=== PATIENT | male | born 1960 | race Caucasian/White ===

== ENCOUNTER → 2017-11-28 | Outpatient (CLI) | payer OTHER | END | disposition home or self-care (01) | LOC: LAB 15:04 | DX: N20.0 Calculus of kidney (principal) | CPT/HCPCS: 82360 ==

== ENCOUNTER 2021-09-25 08:37 | Emergency (ER) | payer OTHER ==
[~2021-09-25] VITALS: Ht 182.9 cm; Wt 81.7 kg
[2021-09-25 09:08] LABS: BASOPHILS ABSOLUTE AUTO 0.03 K/mm3 (0.00-0.23); BASOPHILS PERCENT AUTO 1 % (0-2); EOSINOPHILS ABSOLUTE AUTO 0.08 K/mm3 (0.00-0.68); EOSINOPHILS PERCENT AUTO 2 % (0-6); Hematocrit 44.8 % (37.0-53.0); Hemoglobin 16.2 g/dL (13.5-17.5); IMMATURE GRAN ABSOLUTE AUTO 0.05 K/mm3 (0.00-0.10); IMMATURE GRAN PERCENT AUTO 1 % (0-1); LYMPHOCYTES ABSOLUTE AUTO 0.89 K/mm3 (0.84-5.20); LYMPHOCYTES PERCENT AUTO 16 % (21-46); MONOCYTES ABSOLUTE AUTO 0.58 K/mm3 (0.16-1.47); MONOCYTES PERCENT AUTO 11 % (4-13); Mean Corpuscular HGB 33.5 pg (26.0-34.0); Mean Corpuscular HGB Conc 36.2 g/dL (31.5-36.5); Mean Corpuscular Volume 93 fL (80-100); Mean Platelet Volume 11.9 fL (9.1-12.4); NEUTROPHILS ABSOLUTE AUTO 3.85 K/mm3 (1.96-9.15); NEUTROPHILS PERCENT AUTO 70 % (41-73); Platelet Count 143 K/mm3 (150-400); RDW Coefficient Variation 12.7 % (11.7-14.2); RDW Standard Deviation 43.6 fL (35.1-46.3); Red Blood Cell Count 4.83 M/mm3 (4.30-5.90); White Blood Cell Count 5.48 K/mm3 (4.00-11.30)
[2021-09-25 09:41] LABS: Alanine Aminotransfer (ALT/SGP 71 U/L (12-78); Albumin, Blood 3.4 g/dL (3.4-5.0); Alk Phos 110 U/L (50-136); Anion Gap 5 mmol/L (6-16); Aspartate Aminotrans (AST/SGOT 43 U/L (12-37); Bilirubin, Total 0.8 mg/dL (0.1-1.0); Blood Urea Nitrogen 18 mg/dL (8-24); Bun/Creatinine Ratio 20.3 (12.0-20.0); CO2, Blood 24 mmol/L (21-32); Calcium, Blood 8.6 mg/dL (8.5-10.1); Chloride, Blood 113 mmol/L (98-108); Creatinine, Blood 0.89 mg/dL (0.60-1.20); Globulin, Blood 3.5 g/dL (2.2-4.0); Glomerular Filtration Rate >60 (60-); Glucose, Blood 119 mg/dL (70-99); Potassium, Blood 4.1 mmol/L (3.5-5.5); Sodium, Blood 142 mmol/L (136-145); Total Protein, Blood 6.9 g/dL (6.4-8.2); Troponin I <0.015 ng/mL (0.000-0.040)
[2021-09-25 09:46] LABS: Ethanol (Alcohol), Blood, Med <3 mg/dL
[2021-09-25] MEDS ORDERED: SILDENAFIL CIT100 MG PO (09:46)
[2021-09-25] MEDS ORDERED: TERA5 PO (09:46)
[2021-09-25 09:52] LABS: International Normalized Ratio 1.04; Prothrombin Time Results 10.9 Sec (9.7-11.5)
== END 2021-09-25 11:24 | disposition home or self-care (01) ==
LOC: ER 08:37
PROVIDERS: Emergency Medicine
DX: I95.2 Hypotension due to drugs (principal); T50.995A Adverse effect of other drugs, medicaments and biological substances, initial encounter; I10 Essential (primary) hypertension; Z88.5 Allergy status to narcotic agent
CPT/HCPCS: 70450; 80053; 83880; 84484; 85025; 85610; 93005; 93010; 99284-25; G0480

== ENCOUNTER → 2022-02-03 | Outpatient (CLI) | payer OTHER ==
[~2022-02-03] MED LIST: SILDENAFIL CIT100 MG PO; TERA5 PO
[2022-02-03 12:05] LABS: Protein, Urine Quantitative 6.6 mg/dL (0.0-11.9); Urine Potassium 37 mmol/L (12.0-75.0)
[2022-02-03 13:02] LABS: Microalbumin, Urine Quant. <5.000 mg/L (0.000-20.000)
== END ==
LOC: LAB SHORT 06:00 → LAB FUT 02-02 06:50
PROVIDERS: Internal Medicine Nephrology
DX: N18.2 Chronic kidney disease, stage 2 (mild) (principal); D63.1 Anemia in chronic kidney disease; N25.81 Secondary hyperparathyroidism of renal origin; E55.9 Vitamin D deficiency, unspecified; E78.00 Pure hypercholesterolemia, unspecified; R76.9 Abnormal immunological finding in serum, unspecified; R94.5 Abnormal results of liver function studies; R94.6 Abnormal results of thyroid function studies
CPT/HCPCS: 81050; 82043; 82570; 84133; 84156

== ENCOUNTER 2022-09-18 11:56 | Emergency (ER) | payer OTHER ==
[~2022-09-18] VITALS: Ht 182.9 cm; Wt 90.7 kg
[2022-09-18 13:59] LABS: BASOPHILS ABSOLUTE AUTO 0.07 K/mm3 (0.00-0.23); BASOPHILS PERCENT AUTO 1 % (0-2); EOSINOPHILS ABSOLUTE AUTO 0.08 K/mm3 (0.00-0.68); EOSINOPHILS PERCENT AUTO 1 % (0-6); Hematocrit 46.1 % (37.0-53.0); Hemoglobin 16.7 g/dL (13.5-17.5); IMMATURE GRAN ABSOLUTE AUTO 0.08 K/mm3 (0.00-0.10); IMMATURE GRAN PERCENT AUTO 1 % (0-1); LYMPHOCYTES ABSOLUTE AUTO 1.45 K/mm3 (0.84-5.20); LYMPHOCYTES PERCENT AUTO 18 % (21-46); MONOCYTES ABSOLUTE AUTO 0.82 K/mm3 (0.16-1.47); MONOCYTES PERCENT AUTO 10 % (4-13); Mean Corpuscular HGB 33.3 pg (26.0-34.0); Mean Corpuscular HGB Conc 36.2 g/dL (31.5-36.5); Mean Corpuscular Volume 92 fL (80-100); Mean Platelet Volume 11.2 fL (9.1-12.4); NEUTROPHILS ABSOLUTE AUTO 5.58 K/mm3 (1.96-9.15); NEUTROPHILS PERCENT AUTO 69 % (41-73); Platelet Count 195 K/mm3 (150-400); RDW Coefficient Variation 12.1 % (11.7-14.2); RDW Standard Deviation 40.6 fL (35.1-46.3); Red Blood Cell Count 5.01 M/mm3 (4.30-5.90); White Blood Cell Count 8.08 K/mm3 (4.00-11.30)
[2022-09-18 14:14] LABS: Albumin/Globulin Ratio 1.2 (0.8-1.8); Bilirubin, Total 0.8 mg/dL (0.1-1.0); Bun/Creatinine Ratio 12.4 (12.0-20.0); Calcium, Blood 8.9 mg/dL (8.5-10.1); Creatinine, Blood 0.97 mg/dL (0.60-1.20); Globulin, Blood 3.3 g/dL (2.2-4.0); Potassium, Blood 4.7 mmol/L (3.5-5.5); Total Protein, Blood 7.3 g/dL (6.4-8.2)
[2022-09-18 15:11] LABS: Magnesium, Blood 2.4 mg/dL (1.6-2.4)
[2022-09-18 15:13] LABS: Thyroid Stimulating Hormone 1.33 uIU/mL (0.360-4.800)
[2022-09-18 15:46] LABS: Influenza A, PCR NEGATIVE (NEGATIVE); Influenza B, PCR NEGATIVE (NEGATIVE); Resp Syncytial Virus, PCR NEGATIVE (NEGATIVE); SARS-Cov-2 (COVID-19) PCR, MMC NEGATIVE (NEGATIVE)
== END 2022-09-18 17:10 | disposition home or self-care (01) ==
LOC: ER 11:56
PROVIDERS: Physician Assistant; Student in an Organized Health Care Education/Training Program
DX: G45.9 Transient cerebral ischemic attack, unspecified (principal); I10 Essential (primary) hypertension; Z88.5 Allergy status to narcotic agent; Z79.899 Other long term (current) drug therapy; Z20.822 Contact with and (suspected) exposure to COVID-19
CPT/HCPCS: 0241U; 36415; 70450; 70496; 70498; 80053; 82947; 83735; 84443; 85025; 93005; 93010; Q9967

== ENCOUNTER 2022-10-13 09:03 | Emergency (ER) | payer OTHER ==
[~2022-10-13] VITALS: Ht 182.9 cm; Wt 90.7 kg
[2022-10-13 09:30] LABS: BASOPHILS ABSOLUTE AUTO 0.04 K/mm3 (0.00-0.23); BASOPHILS PERCENT AUTO 1 % (0-2); EOSINOPHILS ABSOLUTE AUTO 0.05 K/mm3 (0.00-0.68); EOSINOPHILS PERCENT AUTO 1 % (0-6); Hematocrit 45.3 % (37.0-53.0); Hemoglobin 16.8 g/dL (13.5-17.5); IMMATURE GRAN ABSOLUTE AUTO 0.07 K/mm3 (0.00-0.10); IMMATURE GRAN PERCENT AUTO 1 % (0-1); LYMPHOCYTES ABSOLUTE AUTO 0.94 K/mm3 (0.84-5.20); LYMPHOCYTES PERCENT AUTO 14 % (21-46); MONOCYTES ABSOLUTE AUTO 0.76 K/mm3 (0.16-1.47); MONOCYTES PERCENT AUTO 11 % (4-13); Mean Corpuscular HGB 33.7 pg (26.0-34.0); Mean Corpuscular HGB Conc 37.1 g/dL (31.5-36.5); Mean Corpuscular Volume 91 fL (80-100); Mean Platelet Volume 11.3 fL (9.1-12.4); NEUTROPHILS ABSOLUTE AUTO 4.81 K/mm3 (1.96-9.15); NEUTROPHILS PERCENT AUTO 72 % (41-73); Platelet Count 156 K/mm3 (150-400); Red Blood Cell Count 4.98 M/mm3 (4.30-5.90); White Blood Cell Count 6.67 K/mm3 (4.00-11.30)
[2022-10-13 09:42] LABS: Albumin, Blood 3.8 g/dL (3.4-5.0); Albumin/Globulin Ratio 1.1 (0.8-1.8); Bun/Creatinine Ratio 21.7 (12.0-20.0); Calcium, Blood 8.6 mg/dL (8.5-10.1); Creatinine, Blood 0.79 mg/dL (0.60-1.20); Globulin, Blood 3.5 g/dL (2.2-4.0); Potassium, Blood 4.1 mmol/L (3.5-5.5); Total Protein, Blood 7.3 g/dL (6.4-8.2)
[2022-10-13] MEDS ORDERED: Aspir 8181 MG PO (11:44)
== END 2022-10-13 12:02 | disposition home or self-care (01) ==
LOC: ER 09:03
PROVIDERS: Student in an Organized Health Care Education/Training Program
DX: R20.0 Anesthesia of skin (principal); G47.33 Obstructive sleep apnea (adult) (pediatric); I10 Essential (primary) hypertension; Z91.198 Patient's noncompliance with other medical treatment and regimen for other reason; Z88.5 Allergy status to narcotic agent
CPT/HCPCS: 70450; 70498; 80053; 83735; 85025; 93005; 93010; A9270; Q9967

== ENCOUNTER 2023-09-24 16:29 | Observation (INO) | payer OTHER ==
[~2023-09-24] VITALS: Ht 182.9 cm; Wt 86.5 kg
[~2023-09-24 16:29] MED LIST changes: +Aspir 8181 MG PO
[2023-09-24] MEDS ORDERED: Prinivil10 MG PO (16:36)
[2023-09-24 17:08] LABS: BASOPHILS ABSOLUTE AUTO 0.07 K/mm3 (0.00-0.23); BASOPHILS PERCENT AUTO 1 % (0-2); EOSINOPHILS ABSOLUTE AUTO 0.16 K/mm3 (0.00-0.68); EOSINOPHILS PERCENT AUTO 2 % (0-6); Hemoglobin 14.4 g/dL (13.5-17.5); IMMATURE GRAN ABSOLUTE AUTO 0.03 K/mm3 (0.00-0.10); IMMATURE GRAN PERCENT AUTO 0 % (0-1); LYMPHOCYTES ABSOLUTE AUTO 1.44 K/mm3 (0.84-5.20); LYMPHOCYTES PERCENT AUTO 21 % (21-46); MONOCYTES ABSOLUTE AUTO 0.76 K/mm3 (0.16-1.47); MONOCYTES PERCENT AUTO 11 % (4-13); Mean Corpuscular HGB Conc 34.3 g/dL (31.5-36.5); Mean Corpuscular Volume 88 fL (80-100); Mean Platelet Volume 11.8 fL (9.1-12.4); NEUTROPHILS PERCENT AUTO 65 % (41-73); Platelet Count 182 K/mm3 (150-400); RDW Coefficient Variation 13.2 % (11.7-14.2); RDW Standard Deviation 41.9 fL (35.1-46.3); White Blood Cell Count 6.96 K/mm3 (4.00-11.30)
[2023-09-24 17:16] LABS: Albumin, Blood 3.5 g/dL (3.4-5.0); Bilirubin, Total 0.5 mg/dL (0.1-1.0); Bun/Creatinine Ratio 16.9 (12.0-20.0); Calcium, Blood 8.3 mg/dL (8.5-10.1); Creatinine, Blood 0.95 mg/dL (0.60-1.20); Globulin, Blood 3.6 g/dL (2.2-4.0); Potassium, Blood 4.1 mmol/L (3.5-5.5); Total Protein, Blood 7.1 g/dL (6.4-8.2)
[2023-09-24 23:36] VITALS: BP 144/70
--- NOTE | 2023-09-25 00:56 | NUR ---
PATIENT IS A NEW ADMIT FROM THE ED. ARRIVED VIA GURNEY AND SELF TRANSFER TO BED. AXOX 4 AND INDEPENDENT. NO NEURO DEFICITS NOTED OR REPORTED BY PATIENT AND SPOUSE AT THIS TIME. ON ROOM AIR. PATIENT ON CPAP AFTER ASSESSMENT COMPLETED. ORIENTED TO ROOM AND CALL LIGHT SYSTEM. SPOUSE LEFT FOR EVENING. OTTO.
--- NOTE | 2023-09-25 04:07 | NUR ---
SHIFT SUMMARY PATIENT HAD NO ACUTE CHANGES. NO NEURO DEFICITS OBSERVED OR REPORTED BY PATIENT. AXOX 4 AND SBA TO BR. DENIES CHEST PAIN, SOB, AND N/V. ON HOME CPAP REVIEWED BY RT. VSS/AFEBRILE. PIV REMAINS INTACT. SLEPT MOST OF SHIFT. COOPERATIVE WITH CARE. CALL LIGHT IN REACH. BED IN LOWEST POSITION. WILL CONTINUE TO MONITOR UNTIL DAY SHIFT NURSE ASSUMES CARE.
[2023-09-25 04:44] VITALS: BP 135/67
[2023-09-25 07:33] VITALS: BP 167/82
--- NOTE | 2023-09-25 07:51 | NUR ---
ASSUMED CARE OF PT- BEDSIDE REPORT COMPLETED WITH NIGHT RN. PT ALERT AND ORIENTED REMOVED HIS HOME C-PAP TO PARTICIPATE IN BEDSIDE REPORT AND REPLACED IT ON HIS OWN. PER REPORT PT INDEPENDENT TO THE BATHROOM. BP ON MORNING ASSESSMENT WAS 167/89. CALLED DR SALMERON PT LISINOPRIL WAS ORDERED FOR LAST NIGHT AND SKIP THIS MORNING. PT DECLINEDTO TAKE IT LAST NIGHT HE HAD ALREADY TAKEN YESTERDAYS DOSE PRIOR TO COMING TO THE ER. SPOKE WITH MD AND RECIEVED ORDER FOR LISINOPRIL THIS MORNING, ORDER PLACED IN ORDER MANAGEMENT.
[2023-09-25] MEDS ORDERED: MELA3 PO (15:59)
[2023-09-25] MEDS ORDERED: CLOP75 PO (15:59)
--- NOTE | 2023-09-25 16:46 | NUR ---
DISCHARGE NOTE: COMPLETED DISCHARGE AND WENT OVER IT WITH PATIENT AND HIS AND REMOVED HIS IV. CALLED DR. RAYMOND ABOUT IMAGING RESULTS. HE STATED OKAY TO NOTIFY THE PATIENT THAT RESULTS OF STUDIES CAN BE DISCUSSED WITH PCP AND HOPES OF BEING ABLE TO GET HIM SCHEDULED A FOLLOW UP TOMORROW 09/26. PATIENT AND ACKNOWLEDGED UNDERSTANDING. HIS BELONGINGS WERE ALREADY COLLECTED AND PATIENT WAS WHEELED OUT VIA WHEELCHAIR BY [facility] REFINERY OUT OF THE HOSPITAL TO HIM AND HIS 'S VEHICLE. NO SIGNS OR SYMPTOMS OF DISTRESS.
== END 2023-09-25 16:13 | disposition home or self-care (01) ==
LOC: ER 16:29 → MEDS 16:30 → ERHOLD 16:30 → MEDS 23:27
PROVIDERS: Emergency Medicine; ADMIT Internal Medicine
DX: G45.9 Transient cerebral ischemic attack, unspecified (principal); I10 Essential (primary) hypertension; G47.33 Obstructive sleep apnea (adult) (pediatric); R01.1 Cardiac murmur, unspecified; I70.0 Atherosclerosis of aorta; I71.9 Aortic aneurysm of unspecified site, without rupture; Z79.82 Long term (current) use of aspirin; Z88.5 Allergy status to narcotic agent; Z88.8 Allergy status to other drugs, medicaments and biological substances; Z79.899 Other long term (current) drug therapy
CPT/HCPCS: 70450; 80053; 85025; 93005; 93010; 93306; 93880; 94762; 96372; 99285-25; A9270; G0378; J1650

== ENCOUNTER → 2024-05-11 | Outpatient (CLI) | payer OTHER ==
[~2024-05-11] MED LIST changes: +CLOP75 PO; +MELA3 PO; +Prinivil10 MG PO
[2024-05-12 12:59] LABS: Stool Occult Bld Immuno 1 Negative (NEGATIVE)
== END | disposition home or self-care (01) ==
LOC: LAB SHORT 17:13 → LAB 17:13
PROVIDERS: Family Medicine
DX: Z12.11 Encounter for screening for malignant neoplasm of colon (principal)
CPT/HCPCS: G0328

== ENCOUNTER 2025-01-03 10:33 | Inpatient (IN) | payer MEDICARE ==
[~2025-01-03] VITALS: Ht 182.9 cm; Wt 82.6 kg
[2025-01-03 11:39] LABS: BASOPHILS ABSOLUTE AUTO 0.05 K/mm3 (0.00-0.23); BASOPHILS PERCENT AUTO 1 % (0-2); EOSINOPHILS ABSOLUTE AUTO 0.03 K/mm3 (0.00-0.68); EOSINOPHILS PERCENT AUTO 1 % (0-6); Hematocrit 45.8 % (37.0-53.0); IMMATURE GRAN ABSOLUTE AUTO 0.04 K/mm3 (0.00-0.10); IMMATURE GRAN PERCENT AUTO 1 % (0-1); LYMPHOCYTES ABSOLUTE AUTO 1.02 K/mm3 (0.84-5.20); LYMPHOCYTES PERCENT AUTO 17 % (21-46); MONOCYTES PERCENT AUTO 15 % (4-13); Mean Corpuscular HGB 31.9 pg (26.0-34.0); Mean Corpuscular HGB Conc 34.9 g/dL (31.5-36.5); Mean Corpuscular Volume 91 fL (80-100); Mean Platelet Volume 11.9 fL (9.1-12.4); NEUTROPHILS ABSOLUTE AUTO 4.11 K/mm3 (1.96-9.15); NEUTROPHILS PERCENT AUTO 67 % (41-73); Platelet Count 163 K/mm3 (150-400); RDW Coefficient Variation 13.6 % (11.7-14.2); RDW Standard Deviation 45.1 fL (35.1-46.3); Red Blood Cell Count 5.01 M/mm3 (4.30-5.90); White Blood Cell Count 6.15 K/mm3 (4.00-11.30)
[2025-01-03 11:50] LABS: International Normalized Ratio 1.04; Prothrombin Time Results 11.1 Sec (9.7-11.5)
[2025-01-03 11:59] LABS: Albumin/Globulin Ratio 1.1 (0.8-1.8); Bilirubin, Total 0.9 mg/dL (0.1-1.0); Bun/Creatinine Ratio 11.9 (12.0-20.0); Calcium, Blood 9.2 mg/dL (8.5-10.1); Creatinine, Blood 0.93 mg/dL (0.60-1.20); Globulin, Blood 3.6 g/dL (2.2-4.0); Potassium, Blood 4.3 mmol/L (3.5-5.5); Total Protein, Blood 7.6 g/dL (6.4-8.2)
[2025-01-03] MEDS ORDERED: FLU VACC TS2024-25(6MOS UP)/PF 45 MCG/0.5 ML SYRINGE IM SCH (13:45)
[2025-01-03] MEDS ORDERED: Clopidogrel Bisulfate 300 MG Cap PO ONE (15:15)
[2025-01-03 18:02] VITALS: BP 182/82
[2025-01-03] MEDS ORDERED: Flomax0.4 MG PO (18:11)
[2025-01-03] MEDS ORDERED: MELA3 PO (18:11)
[2025-01-03] MEDS ORDERED: FEROSUL325 M1 PO (18:12)
[2025-01-03] MEDS ORDERED: HYDR10 PO (18:37)
--- NOTE | 2025-01-03 19:35 | NUR ---
ADMIT NOTE REPORT TAKEN FROM ER NURSE MICHAEL. BROUGHT UP AROUND 1730. A/OX3-4. ROOM AIR. STAND-BY ASSIST, LIMP TO RLE FROM CRUSH INJURY. NO NOTED DEFICITS FROM TIA. REPORT GIVEN TO NIKITA [employer] SCIENTIST VALERIA. MED REC COMPLETED. HISTORY OF SUNDOWNING AND AGITATION/AGGRESSION WITH BETA BLOCKERS AND ANTIPSYCHOTICS. COPIES OF LIST OF MEDS TRIED ON CHART. SKIN INTACT. CPAP TO BE BROUGHT IN FROM HOME BY . REQUESTING MELATONIN TONIGHT. JEREMIAH CLAY RN TO CALL HOSPITALIST ABOUT ELEVATED BLOOD PRESSURE IN THE 180'S WHICH HAS BEEN DOCUMENTED IN ER PREVIOUSLY. NO MEDS GIVEN IN ER.
--- NOTE | 2025-01-03 19:48 | NUR ---
HOSPITALIST CONTACT PT REQUESTING HOME MED/MELATONIN AND HYDRALAZINE FOR BP. SPOKE TO JUANI--NEW ORDER FOR 3MG MELATONIN AT BEDTIME. 10MG PO HYDRALAZINE Q6PRN FOR SYSTOLIC BP GREATER THAN 180.
[2025-01-03] MEDS ORDERED: HydrALAZINE HCl 10 MG Tab PO PRN (19:50)
[2025-01-03] MEDS ORDERED: Melatonin 3 MG Tab PO SCH (21:00)
[2025-01-04] VITALS (7 sets, daily range): BP systolic 148–193; BP diastolic 61–91
[2025-01-04 06:39] LABS: LDL/HDL RATIO 0.7; Very Low Density Lipoprot Chol 13 mg/dL (6-32)
[2025-01-04 06:40] LABS: CHOL/HDL RATIO 1.9; Cholesterol 123 mg/dL (50-200); HDL Cholesterol 65 mg/dL (>39); Low Density Lipoprotein Chol 45 mg/dL (0-110); Triglycerides 67 mg/dL (30-160)
[2025-01-04] MEDS ORDERED: Aspirin 81 MG Chew PO SCH (09:00)
[2025-01-04] MEDS ORDERED: Clopidogrel Bisulfate 75 MG Tab PO SCH (09:00)
[2025-01-04] MEDS ORDERED: Tamsulosin HCl 0.4 MG Cap PO SCH (09:00)
[2025-01-04] MEDS ORDERED: Enoxaparin 40 MG/0.4 ML SYR SC SCH (09:00)
[2025-01-04] MEDS ORDERED: HydrALAZINE HCl 10 MG Tab PO SCH (14:00)
--- NOTE | 2025-01-04 23:14 | NUR ---
ASSESSED PT S IV SITE FOR POSSIBLE LEAKING. SITE SHOWN DARK DRIED BLOOD. FLUSHED WITH 10ML NS NO SIGN OF LEAKING, INFILTRATION, OR SWELLING. NO PAIN, OR BURNING EXPRESSED BY PT. WILL CONTINUE TO MONITOR.
[2025-01-05 00:14] VITALS: BP 167/70
--- NOTE | 2025-01-05 06:22 | NUR ---
SHIFT SUMMARY PT ALERT AND ORIENTED TIMES 4. PT ABLE TO MAKE NEEDS KNOWN. PT ABLE TO AMBULATE TO AND FROM TOILET WITH STAND BY ASSIST. PT S AT BED-SIDE. PT USING C-PAP MACHINE AT NIGHT WHILE SLEEPING. ASSESSED PT S IV SITE FOR POSSIBLE LEAKING. SITE SHOWN DARK DRIED BLOOD. WHEN FLUSHED, THERE WAS NO SIGN OF LEAKING, INFILTRATION, OR SWELLING. NO PAIN, OR BURNING EXPRESSED BY PT. PT IS RECEPTIVE TO CARE, GETS ANXIOUS AND SLIGHTLY AGITATED WITH LOTS OF PEOPLE IN ROOM. PT HAS EPISODES OF SUNDOWNERS. BED IN LOW POSITION, CALL LIGHT WITHIN REACH, RAILS TIMES 2.
[2025-01-05 07:06] VITALS: BP 155/81
[2025-01-05 07:17] LABS: Bun/Creatinine Ratio 15.2 (12.0-20.0); Calcium, Blood 8.6 mg/dL (8.5-10.1); Creatinine, Blood 1.05 mg/dL (0.60-1.20); Potassium, Blood 4.5 mmol/L (3.5-5.5)
[2025-01-05] MEDS ORDERED: ASPI81CH PO (10:48)
[2025-01-05] MEDS ORDERED: PLAVIX75 MG PO (10:49)
[2025-01-05] MEDS ORDERED: HydrALAZINE HCl 10 MG Tab PO SCH (12:00)
--- NOTE | 2025-01-05 14:51 | NUR ---
PT DISCHARGED WITH DC INSTRUCTIONS, WHEELCHAIR ESCORT OUT TO PRIVATE CAR, NIKO WILL DRIVE PT HOME.
== END 2025-01-05 11:17 | disposition home or self-care (01) | DRG 65 ==
LOC: ER 10:33 → ERHOLD 10:34 → MEDS 10:34
PROVIDERS: Emergency Medicine; ADMIT Internal Medicine
DX: I63.512 Cerebral infarction due to unspecified occlusion or stenosis of left middle cerebral artery (principal); F03.94 Unspecified dementia, unspecified severity, with anxiety; N40.0 Benign prostatic hyperplasia without lower urinary tract symptoms; I10 Essential (primary) hypertension; G47.33 Obstructive sleep apnea (adult) (pediatric); R47.81 Slurred speech; I72.0 Aneurysm of carotid artery; Z88.5 Allergy status to narcotic agent; Z88.8 Allergy status to other drugs, medicaments and biological substances; Z98.890 Other specified postprocedural states; R29.702 NIHSS score 2
CPT/HCPCS: 36415; 70450; 70496; 70498; 70551; 71045; 80048; 80053; 80061; 83036; 84484; 85025; 85610; 85730; 93005; 93010; 96372; 99285-25; A9270; G0378; J1650; Q9967

== ENCOUNTER 2025-07-16 15:11 | Emergency (ER) | payer MEDICARE ==
[~2025-07-16] VITALS: Ht 188 cm; Wt 81.7 kg
[~2025-07-16 15:11] MED LIST changes: +ACET325 PO; +ASPI81CH PO; +DOCUZEN 8.6-501 EACH PO; +FEROSUL325 M1 PO; +Flomax0.4 MG PO; +HYDR10 PO; +MIRALAX17 GM PO; +OLAN5 PO; +PLAVIX75 MG PO; +ROSUVASTATIN CAL5 MG PO
[2025-07-16 15:19] VITALS: BP 167/92
[2025-07-21] MEDS ORDERED: LIDO700A20 TOP ×3 (11:48→13:44)
== END 2025-07-16 18:27 | disposition home or self-care (01) ==
LOC: ER 15:11
DX: S42.031A Displaced fracture of lateral end of right clavicle, initial encounter for closed fracture (principal); G47.30 Sleep apnea, unspecified; I10 Essential (primary) hypertension; W18.30XA Fall on same level, unspecified, initial encounter; Z86.73 Personal history of transient ischemic attack (TIA), and cerebral infarction without residual deficits; Z79.82 Long term (current) use of aspirin; Z79.899 Other long term (current) drug therapy; Z88.5 Allergy status to narcotic agent; Z88.8 Allergy status to other drugs, medicaments and biological substances
CPT/HCPCS: 70450; 72125; 73030; 99284-25

== ENCOUNTER 2025-07-19 22:03 | Emergency (ER) | payer OTHER, MEDICARE ==
[~2025-07-19] VITALS: Ht 182.9 cm; Wt 44.5 kg
[2025-07-19 22:20] VITALS: BP 147/76
[2025-07-21] MEDS ORDERED: LIDO700A20 TOP ×3 (11:48→13:44)
== END 2025-07-20 00:11 | disposition home or self-care (01) ==
LOC: ER 22:03
DX: S09.90XA Unspecified injury of head, initial encounter (principal); I10 Essential (primary) hypertension; W01.0XXA Fall on same level from slipping, tripping and stumbling without subsequent striking against object, initial encounter; Z86.73 Personal history of transient ischemic attack (TIA), and cerebral infarction without residual deficits; Z79.82 Long term (current) use of aspirin; Z79.899 Other long term (current) drug therapy; Z88.1 Allergy status to other antibiotic agents; Z88.5 Allergy status to narcotic agent; Z88.8 Allergy status to other drugs, medicaments and biological substances
CPT/HCPCS: 99283; A9270

== ENCOUNTER 2025-07-21 09:57 | Emergency (ER) | payer MEDICARE ==
[~2025-07-21] VITALS: Ht 175.3 cm; Wt 67.6 kg
[2025-07-21 10:10] VITALS: BP 168/65
[2025-07-21] MEDS ORDERED: Lidocaine 4% 1 Patch TOP ONE (11:40)
[2025-07-21] MEDS ORDERED: LIDO700A20 TOP ×2 (11:48→13:44)
== END 2025-07-21 12:07 | disposition home or self-care (01) ==
LOC: ER 09:57
DX: S42.031A Displaced fracture of lateral end of right clavicle, initial encounter for closed fracture (principal); I10 Essential (primary) hypertension; G47.30 Sleep apnea, unspecified; Z86.73 Personal history of transient ischemic attack (TIA), and cerebral infarction without residual deficits; Z88.8 Allergy status to other drugs, medicaments and biological substances; Z88.5 Allergy status to narcotic agent; Z79.82 Long term (current) use of aspirin; Z79.899 Other long term (current) drug therapy; W18.30XA Fall on same level, unspecified, initial encounter
CPT/HCPCS: 73030; 99283-25; A9270

== ENCOUNTER 2025-08-11 19:47 | Emergency (ER) | payer OTHER, MEDICARE ==
[~2025-08-11] VITALS: Ht 177.8 cm; Wt 63.5 kg
[~2025-08-11 19:47] MED LIST changes: +LIDO700A20 TOP
[2025-08-11 19:56] VITALS: BP 127/72
== END 2025-08-11 21:43 | disposition home or self-care (01) ==
LOC: ER 19:47
DX: Z04.3 Encounter for examination and observation following other accident (principal); I10 Essential (primary) hypertension; G47.30 Sleep apnea, unspecified; F03.90 Unspecified dementia, unspecified severity, without behavioral disturbance, psychotic disturbance, mood disturbance, and anxiety; Z86.73 Personal history of transient ischemic attack (TIA), and cerebral infarction without residual deficits; Z88.5 Allergy status to narcotic agent; Z88.8 Allergy status to other drugs, medicaments and biological substances; Z79.82 Long term (current) use of aspirin; Z79.899 Other long term (current) drug therapy
CPT/HCPCS: 70450; 72125; 99284-25

== ENCOUNTER 2025-08-29 16:21 | Emergency (ER) | payer MEDICARE ==
[~2025-08-29] VITALS: Ht 175.3 cm; Wt 68.0 kg
[2025-08-29 18:38] VITALS: BP 107/52
== END 2025-08-29 18:45 | disposition home or self-care (01) ==
LOC: ER 16:21
DX: S09.90XA Unspecified injury of head, initial encounter (principal); I10 Essential (primary) hypertension; Z86.73 Personal history of transient ischemic attack (TIA), and cerebral infarction without residual deficits; W18.30XA Fall on same level, unspecified, initial encounter
CPT/HCPCS: 70450; 99284-25

== ENCOUNTER 2025-09-04 19:16 | Emergency (ER) | payer MEDICARE ==
[~2025-09-04] VITALS: Ht 182.9 cm; Wt 86.2 kg
[2025-09-04 19:18] VITALS: BP 138/74
[2025-09-04 19:49] LABS: BASOPHILS ABSOLUTE AUTO 0.05 K/mm3 (0.00-0.23); BASOPHILS PERCENT AUTO 1 % (0-2); EOSINOPHILS ABSOLUTE AUTO 0.12 K/mm3 (0.00-0.68); EOSINOPHILS PERCENT AUTO 2 % (0-6); Hematocrit 37.9 % (37.0-53.0); Hemoglobin 13.5 g/dL (13.5-17.5); IMMATURE GRAN ABSOLUTE AUTO 0.04 K/mm3 (0.00-0.10); IMMATURE GRAN PERCENT AUTO 1 % (0-1); LYMPHOCYTES ABSOLUTE AUTO 0.93 K/mm3 (0.84-5.20); LYMPHOCYTES PERCENT AUTO 13 % (21-46); MONOCYTES ABSOLUTE AUTO 0.71 K/mm3 (0.16-1.47); MONOCYTES PERCENT AUTO 10 % (4-13); Mean Corpuscular HGB Conc 35.6 g/dL (31.5-36.5); Mean Corpuscular Volume 94 fL (80-100); NEUTROPHILS ABSOLUTE AUTO 5.22 K/mm3 (1.96-9.15); NEUTROPHILS PERCENT AUTO 74 % (41-73); NRBC ABSOLUTE 0.00 K/mm3 (0.00-0.02); NRBC Auto 0.0 /100 WBC (0.0-0.2); Platelet Count 151 K/mm3 (150-400); RDW Coefficient Variation 12.3 % (11.7-14.2); RDW Standard Deviation 43.2 fL (35.1-46.3)
[2025-09-04 20:02] LABS: Alanine Aminotransfer (ALT/SGP 23.0 U/L (12-78); Albumin, Blood 3.3 g/dL (3.4-5.0); Albumin/Globulin Ratio 1.3 (0.8-1.8); Anion Gap 6.0 mmol/L (3-11); Aspartate Aminotrans (AST/SGOT 19.0 U/L (12-37); Bilirubin, Total 0.7 mg/dL (0.1-1.0); Blood Urea Nitrogen 25.0 mg/dL (8-24); CO2, Blood 27.0 mmol/L (21-32); Calcium, Blood 8.7 mg/dL (8.5-10.1); Chloride, Blood 113.0 mmol/L (98-108); Creatinine, Blood 0.94 mg/dL (0.60-1.20); Globulin, Blood 2.6 g/dL (2.2-4.0); Glucose, Blood 108.0 mg/dL (70-99); Potassium, Blood 4.4 mmol/L (3.5-5.5); Sodium, Blood 142.0 mmol/L (136-145); Total Protein, Blood 5.9 g/dL (6.4-8.2)
[2025-09-04] MEDS ORDERED: Lidocaine 4% 1 Patch TOP ONE (20:20)
[2025-09-04] MEDS ORDERED: LORazepam 2 MG/ML 1ML Injection IV ONE (20:30)
[2025-09-04] MEDS ORDERED: LIDO700A20 TOP (21:39)
== END 2025-09-05 00:19 | disposition home or self-care (01) ==
LOC: ER 19:16
PROVIDERS: Emergency Medicine
DX: S30.0XXA Contusion of lower back and pelvis, initial encounter (principal); I10 Essential (primary) hypertension; Z88.8 Allergy status to other drugs, medicaments and biological substances; Z79.899 Other long term (current) drug therapy; Z79.82 Long term (current) use of aspirin; W18.30XA Fall on same level, unspecified, initial encounter
CPT/HCPCS: 72100; 80053; 85025; 93005; 93010; 99285-25; A9270; J2060

== ENCOUNTER 2025-09-20 06:46 | Emergency (ER) | payer OTHER, MEDICARE ==
[~2025-09-20] VITALS: Ht 182.9 cm; Wt 72.6 kg
[2025-09-20 06:55] VITALS: BP 115/55
== END 2025-09-20 09:10 | disposition home or self-care (01) ==
LOC: ER 06:46
DX: S00.81XA Abrasion of other part of head, initial encounter (principal); A81.00 Creutzfeldt-Jakob disease, unspecified; I10 Essential (primary) hypertension; Z86.73 Personal history of transient ischemic attack (TIA), and cerebral infarction without residual deficits; G47.30 Sleep apnea, unspecified; W01.0XXA Fall on same level from slipping, tripping and stumbling without subsequent striking against object, initial encounter; Z79.899 Other long term (current) drug therapy; Z79.82 Long term (current) use of aspirin; Z88.1 Allergy status to other antibiotic agents; Z88.5 Allergy status to narcotic agent; Z88.8 Allergy status to other drugs, medicaments and biological substances
CPT/HCPCS: 99283

== ENCOUNTER 2025-10-21 15:39 | Emergency (ER) | payer MEDICARE ==
[~2025-10-21] VITALS: Ht 182.9 cm; Wt 81.7 kg
[2025-10-21 16:03] VITALS: BP 172/74
== END 2025-10-21 19:17 | disposition home or self-care (01) ==
LOC: ER 15:39
DX: K59.00 Constipation, unspecified (principal); K80.20 Calculus of gallbladder without cholecystitis without obstruction; I10 Essential (primary) hypertension; G47.30 Sleep apnea, unspecified; Z86.73 Personal history of transient ischemic attack (TIA), and cerebral infarction without residual deficits; Z88.8 Allergy status to other drugs, medicaments and biological substances; Z88.5 Allergy status to narcotic agent; Z79.82 Long term (current) use of aspirin; Z79.899 Other long term (current) drug therapy
CPT/HCPCS: 74176; 99284-25; A9270

== ENCOUNTER 2025-11-08 14:06 | Emergency (ER) | payer MEDICARE ==
[~2025-11-08] VITALS: Ht 172.7 cm; Wt 72.6 kg
[2025-11-08 16:57] LABS: Source, Urine Clean Catch
[2025-11-08 17:14] LABS: Bilirubin, Urine Neg (Neg); Glucose Qualitative, Urine Neg (Neg); Ketones, Urine Neg (Neg); Leukocyte Esterase, Urine Neg (Neg); Protein, Urine Neg (Neg); Specific Gravity, Urine 1.010 (1.003-1.022); Urobilinogen, Urine NORM (Normal)
[2025-11-08 17:20] LABS: Color, Urine Pale Yellow (P-Yellow)
[2025-11-08 17:40] VITALS: BP 148/72
== END 2025-11-08 17:40 | disposition home or self-care (01) ==
LOC: ER 14:06
PROVIDERS: Student in an Organized Health Care Education/Training Program
DX: M79.671 Pain in right foot (principal); I10 Essential (primary) hypertension; W18.30XA Fall on same level, unspecified, initial encounter; Z86.73 Personal history of transient ischemic attack (TIA), and cerebral infarction without residual deficits; Z79.82 Long term (current) use of aspirin; Z79.899 Other long term (current) drug therapy; Z88.1 Allergy status to other antibiotic agents; Z88.5 Allergy status to narcotic agent; Z88.8 Allergy status to other drugs, medicaments and biological substances
CPT/HCPCS: 70450; 81003; 99284-25

== ENCOUNTER 2025-11-10 12:04 | Emergency (ER) | payer MEDICARE ==
[~2025-11-10] VITALS: Ht 182.9 cm; Wt 81.7 kg
[2025-11-10 12:58] LABS: Source, Urine Clean Catch
[2025-11-10 13:01] LABS: Bilirubin, Urine Neg (Neg); Color, Urine Yellow (P-Yellow); Glucose Qualitative, Urine Neg (Neg); Ketones, Urine Neg (Neg); Leukocyte Esterase, Urine Neg (Neg); Protein, Urine 2+ (Neg); Specific Gravity, Urine 1.025 (1.003-1.022); Urobilinogen, Urine NORM (Normal)
[2025-11-10 13:06] LABS: BASOPHILS ABSOLUTE AUTO 0.04 K/mm3 (0.00-0.23); BASOPHILS PERCENT AUTO 1 % (0-2); EOSINOPHILS ABSOLUTE AUTO 0.04 K/mm3 (0.00-0.68); EOSINOPHILS PERCENT AUTO 1 % (0-6); Hematocrit 39.8 % (37.0-53.0); Hemoglobin 14.3 g/dL (13.5-17.5); IMMATURE GRAN ABSOLUTE AUTO 0.07 K/mm3 (0.00-0.10); IMMATURE GRAN PERCENT AUTO 1 % (0-1); LYMPHOCYTES ABSOLUTE AUTO 0.65 K/mm3 (0.84-5.20); LYMPHOCYTES PERCENT AUTO 10 % (21-46); MONOCYTES ABSOLUTE AUTO 0.75 K/mm3 (0.16-1.47); MONOCYTES PERCENT AUTO 11 % (4-13); Mean Corpuscular HGB Conc 35.9 g/dL (31.5-36.5); Mean Corpuscular Volume 94 fL (80-100); NEUTROPHILS ABSOLUTE AUTO 5.13 K/mm3 (1.96-9.15); NEUTROPHILS PERCENT AUTO 77 % (41-73); NRBC ABSOLUTE 0.00 K/mm3 (0.00-0.02); NRBC Auto 0.0 /100 WBC (0.0-0.2); Platelet Count 136 K/mm3 (150-400); RDW Coefficient Variation 12.5 % (11.7-14.2); RDW Standard Deviation 42.9 fL (35.1-46.3)
[2025-11-10 13:08] LABS: Red Blood Cells, Urine Not Seen /hpf (0-2); White Blood Cells, Urine 0-2 /hpf (0-5)
[2025-11-10 13:19] LABS: Alanine Aminotransfer (ALT/SGP 23.0 U/L (12-78); Albumin, Blood 3.4 g/dL (3.4-5.0); Albumin/Globulin Ratio 1.1 (0.8-1.8); Anion Gap 8.0 mmol/L (3-11); Aspartate Aminotrans (AST/SGOT 19.0 U/L (12-37); Bilirubin, Total 1.2 mg/dL (0.1-1.0); Blood Urea Nitrogen 26.0 mg/dL (8-24); CO2, Blood 24.0 mmol/L (21-32); Calcium, Blood 8.3 mg/dL (8.5-10.1); Chloride, Blood 114.0 mmol/L (98-108); Creatinine, Blood 0.95 mg/dL (0.60-1.20); Globulin, Blood 3.1 g/dL (2.2-4.0); Glucose, Blood 94.0 mg/dL (70-99); Potassium, Blood 4.0 mmol/L (3.5-5.5); Sodium, Blood 142.0 mmol/L (136-145); Total Protein, Blood 6.5 g/dL (6.4-8.2)
[2025-11-10] MEDS ORDERED: IBUP600 PO (14:32)
[2025-11-10] MEDS ORDERED: ALPRAZOLAM0.5 M1 PO (14:33)
[2025-11-10 17:00] VITALS: BP 165/95
== END 2025-11-10 19:43 | disposition home or self-care (01) ==
LOC: ER 12:04
PROVIDERS: Emergency Medicine
DX: R41.0 Disorientation, unspecified (principal); S42.031A Displaced fracture of lateral end of right clavicle, initial encounter for closed fracture; R29.6 Repeated falls; I10 Essential (primary) hypertension; G47.30 Sleep apnea, unspecified; Z88.5 Allergy status to narcotic agent; Z86.73 Personal history of transient ischemic attack (TIA), and cerebral infarction without residual deficits; Z88.8 Allergy status to other drugs, medicaments and biological substances; Z79.82 Long term (current) use of aspirin; Z79.899 Other long term (current) drug therapy; Z59.89 Other problems related to housing and economic circumstances; W18.30XA Fall on same level, unspecified, initial encounter
CPT/HCPCS: 71045; 80053; 81001; 84484; 85025; 93005; 93010; 99285-25; A9270

== ENCOUNTER 2025-11-12 14:54 | Emergency (ER) | payer MEDICARE ==
[~2025-11-12] VITALS: Ht 170.2 cm; Wt 68.0 kg
[~2025-11-12 14:54] MED LIST changes: +ALPRAZOLAM0.5 M1 PO; +IBUP600 PO
[2025-11-12 15:18] VITALS: BP 140/73
[2025-11-12] MEDS ORDERED: Lidocaine 4% 1 Patch TOP ONE (15:25)
[2025-11-12] MEDS ORDERED: LIDO700A20 TOP (15:47)
== END 2025-11-12 16:06 | disposition home or self-care (01) ==
LOC: ER 14:54
DX: M62.830 Muscle spasm of back (principal); I10 Essential (primary) hypertension; G47.30 Sleep apnea, unspecified; Z86.73 Personal history of transient ischemic attack (TIA), and cerebral infarction without residual deficits; Z79.82 Long term (current) use of aspirin; Z79.899 Other long term (current) drug therapy; Z88.8 Allergy status to other drugs, medicaments and biological substances; Z88.5 Allergy status to narcotic agent; Z88.1 Allergy status to other antibiotic agents
CPT/HCPCS: 99284; A9270